=== PATIENT | male | born 1990 | race Hispanic/Latino ===

== ENCOUNTER 2017-07-15 03:12 | Emergency (ER) | payer MEDICAID ==
[2017-07-15 04:33] LABS: Hematocrit 43.2 % (35.5-45.6); Hemoglobin 14.8 gm/dl (11.8-15.2); Mean Corpuscular HGB Conc 34 % (32-34); Mean Corpuscular Hemoglobin 31 pg (28-32); Mean Corpuscular Volume 92 fl (84-94); Platelet Count 256 K/mm3 (140-440); Red Blood Count 4.72 M/mm3 (3.65-5.03)
[2017-07-15 04:46] LABS: BUN/Creatinine Ratio 11; Blood Urea Nitrogen 9 mg/dL (9-20); Calcium 9.5 mg/dL (8.4-10.2); Hemolysis Index 9
[2017-07-15] MEDS ORDERED: ATIVAN PO ONE (07:46)
--- NOTE | 2017-07-15 07:51 | Emergency Department Report ---
ED Seizure HPI - General Chief Complaint: Seizure Stated Complaint: CONVULSIONS Time Seen by Provider: 07/15/17 06:17 Source: EMS Mode of arrival: Stretcher Limitations: Altered Mental Status - History of Present Illness Initial Comments: According to the painter tumbling barrel of her records, patient had a grand mal seizure yesterday. It appeared as though he might of had 6. It is unclear if he returned to baseline. The painter tumbling barrel with him did not witness the seizures. At time of presentation to the ER, patient is back to his baseline. He was given 2 mg Ativan intramuscularly. His last seizure was a couple days ago as well. She is unsure if he was given any medicine to stop the seizures. According to the patient, he has multiple seizures a month. They're very difficult to control. - Related Data Previous Rx's Medication Instructions Recorded Last Taken Type LORazepam [Ativan] 2 mg PO BID #30 tab 07/15/17 Unknown Rx Allergies Allergy/AdvReac Type Severity Reaction Status Date / Time clobazam [From Onfi] Allergy Unknown Verified 07/15/17 03:51 lacosamide [From Vimpat] Allergy Unknown Verified 07/15/17 03:51 levetiracetam [From Keppra] Allergy Rash Verified 07/15/17 03:51 topiramate [From Topamax] Allergy Rash Verified 07/15/17 03:51 ED Review of Systems ROS: Stated complaint: CONVULSIONS Other details as noted in HPI Comment: All other systems reviewed and negative Neurological: headache ED Past Medical Hx - Past Medical History Previous Medical History?: Yes Hx Seizures: Yes - Surgical History Past Surgical History?: Yes Additional Surgical History: vagal nerve stimulator implanted - Social History Smoking Status: Never Smoker Substance Use Type: None - Medications Home Medications: Home Medications Medication Instructions Recorded Confirmed Last Taken Type LORazepam [Ativan] 2 mg PO BID #30 tab 07/15/17 Unknown Rx ED Physical Exam - General Limitations: No Limitations General appearance: alert, in no apparent distress - Head Head exam: Present: normocephalic, other (left forehead contusion w/o bony deformity) - Eye Eye exam: Present: normal appearance - ENT ENT exam: Present: mucous membranes moist - Expanded ENT Exam Expanded Ear exam: Present: other (bilateral TMs clear) - Neck Neck exam: Present: normal inspection - Respiratory Respiratory exam: Present: normal lung sounds bilaterally. Absent: respiratory distress - Cardiovascular Cardiovascular Exam: Present: regular rate, normal rhythm. Absent: systolic murmur, diastolic murmur, rubs, gallop - GI/Abdominal GI/Abdominal exam: Present: soft, normal bowel sounds - Rectal Rectal exam: Present: deferred - Extremities Exam Extremities exam: Present: normal inspection - Back Exam Back exam: Present: normal inspection - Neurological Exam Neurological exam: Present: alert, oriented X3 - Psychiatric Psychiatric exam: Present: normal affect, normal mood - Skin Skin exam: Present: warm, dry, intact, normal color. Absent: rash ED Course Vital Signs 07/15/17 07/15/17 07/15/17 03:51 04:00 05:00 Temperature 98.6 F Pulse Rate 79 Respiratory 16 Rate Blood Pressure 121/71 118/70 107/71 Blood Pressure 121/71 [Left] O2 Sat by Pulse 98 95 95 Oximetry 07/15/17 07/15/17 06:00 07:00 Temperature Pulse Rate Respiratory Rate Blood Pressure 118/56 111/62 Blood Pressure [Left] O2 Sat by Pulse 96 96 Oximetry ED Medical Decision Making - Lab Data Result diagrams: 07/15/17 04:20 07/15/17 04:20 - Medical Decision Making 27-year-old male that presents from [place] with seizure. Patient has history of difficult to control epilepsy. According to his medical record from [place], he is on OxyContin as a pain, banzel, felbamate for his seizures. At time of presentation to the ER, patient's back to his neurologic baseline. He has not had any seizure like activity while in the ER. I discussed with his mom, who states that in addition to his antiepileptics, he is also on 2 mg Ativan twice a day. It appears he has not been receiving this well and [place]. Patient has been given a prescription for Ativan to take while he [place]. I have updated the staff about this medication change. I think that he needs further imaging at this time. His mom states that he has difficult to control seizures, including a vagal nerve stimulator that was placed. No focal deficits at this time. Patient is cleared for discharge. No evidence of meningitis. labs unremarkable. - Differential Diagnosis epilepsy, status epilepticus, meningitis, electrolyte abnormalities Critical care attestation.: If time is entered above; I have spent that time in minutes in the direct care of this critically ill patient, excluding procedure time. ED Disposition Clinical Impression: Seizure Disposition: [id number] TO HOME OR SELFCARE Is pt being admited?: No Condition: Stable Instructions: Epilepsy (ED) Additional Instructions: Restart taking your regularly prescribed 2 mg Ativan twice a day while in [place]. You can also have it if seizure-like activity is noted in between doses. Prescriptions: LORazepam [Ativan] 2 mg PO BID #30 tab Referrals: LUKAS ROSADO MD [Primary Care Provider] - 3-5 Days
[2017-07-15 09:39] VITALS: BP 111/57
== END 2017-07-15 09:22 | disposition home or self-care (01) ==
LOC: ED 03:12
DX: G40.909 Epilepsy, unspecified, not intractable, without status epilepticus (principal)
CPT/HCPCS: 36415; 80048; 85027